=== PATIENT | male | born 1975 | race Two or more races ===

== ENCOUNTER 2018-04-02 13:03 | Emergency (ER) | payer OTHER ==
[~2018-04-02] VITALS: Ht 175.3 cm; Wt 98.0 kg
[2018-04-02 13:28] VITALS: BP 129/86
[2018-04-02] MEDS ORDERED: Isovue-300 100ml vial INJ PRN (13:30)
[2018-04-02] MEDS ORDERED: Isovue-370 150ml vial INJ PRN (13:30)
[2018-04-02] MEDS ORDERED: Ketorolac 30mg Inj IV ONE (13:30)
[2018-04-02] MEDS ORDERED: Morphine Sulfate 4mg/ml Inj IVP ONE (13:30)
--- NOTE | 2018-04-02 13:35 | Emergency Room Report ---
History of Present Illness General Chief Complaint: Multiple Trauma/Fall Source: Patient (LukeaartinimoJames BARRIGA) Present Illness HPI Patient presents with complaints of pain to the right lateral chest abdominal area on the right forearm Reports that he had a fall off of a ladder about 1 story high to the right side 2 days ago Reports of the paramedics were called However at that time he did not have much pain And the discomfort has slowly worsened He feels that there is some pleuritic component to this Also pain to the mid back Denies any lapse of consciousness Denies any head injury Denies any focal weakness also has pain to the right forearm (James Claros DO) Allergies: Coded Allergies: No Known Allergies (Unverified , 04/02/18) Patient History Past Medical History: see triage record Pertinent Family History: none Reviewed Nursing Documentation: PMH: Agreed; PSxH: Agreed (James Claros DO) Nursing Documentation-PMH Past Medical History: No Stated History (James Claros DO) Review of Systems All Other Systems: negative except mentioned in HPI (James Claros DO) Physical Exam Vital Signs Date Time Temp Pulse Resp B/P (MAP) Pulse Ox O2 Delivery O2 Flow Rate FiO2 04/02/18 13:06 98.6 82 18 129/86 96 Room Air 98.6 Sp02 EP Interpretation: reviewed, normal General Appearance: mild distress - In acute pain Head: normocephalic, atraumatic Eyes: bilateral eye PERRL, bilateral eye EOMI ENT: hearing grossly normal, normal pharynx, uvula midline Neck: full range of motion, supple, no meningismus, no bony tend - Uncomfortable paracervical area C3-4-5 Respiratory: lungs clear, no respiratory distress, no retraction Cardiovascular #1: regular rate, rhythm, other - Tender on palpation of the right mid axillary region nipple area down to the mid abdominal region Gastrointestinal: tenderness - Right upper quadrant and right flank region Genitourinary: no CVA tenderness Musculoskeletal: swelling - Right forear, however able to flex and Extend at the elbow and wrist Neurologic: alert, oriented x3, responsive Skin: other - Abrasions and hematoma to the right , no other associated hematoma seen Lymphatic: no adenopathy (James Claros DO) Medical Decision Making Diagnostic Impression: Primary Impression: Fall Additional Impressions: Fracture of transverse process of vertebra Closed rib fracture Hemothorax on right ER Course Given the patient's traumatic fall Given the location of pain and description of pain Multiple differentials are considered secondary to trauma Patient has imaging initiated Pain medication (James Claros DO) ER Course The patient presented for fall. The patient was endorsed to me by Dr. lCaros see his note for full history of present illness. CT ABDOMEN & PELVIS With Contrast: Right L3 and L4 transverse process fractures. Mild stranding along the right inferior psoas muscle. Right posterior back subcutaneous soft tissue contusions. Solid organs are intact. Tiny right pleural effusion. Incidental: Tiny low-density lesion in the liver. Normal appendix. Small bilateral fat-containing inguinal hernias. CTA CHEST With Contrast: Right rib 7 nondisplaced fracture. Tiny right pleural effusion. Mild bibasilar lung atelectasis. No pneumothorax. Cardiovascular structures intact. No PE. No aortic aneurysm or dissection. CT C SPINE: No fracture or malalignment. Mild mucosal thickening of the paranasal sinus. CT L SPINE: Right L3 and L4 transverse process fractures. Vertebral bodies are intact. No malalignment. Mild degenerative L4-5 and L5-S1 disc space narrowing. Mild lower back and right lateral subcutaneous soft tissue contusion. Patient was noted to have fall several days ago. Hemothorax appears to be small. Patient was prescribed pain medications. He appears to be stable for discharge home. Patient was advised to return for increased dizziness, fever, or other concerns. The patient is advised to follow up with primary care doctor in 1-2 days. Patient is advised to return if any worsening condition or if any changes in status that are concerning. This report is dictated with [employer] teletype operator software which may occasionally lead to discrepancies related to use of this software. Labs Test 04/02/18 13:40 White Blood Count 6.9 K/UL (4.8-10.8) Red Blood Count 4.21 M/UL (4.70-6.10) Hemoglobin 13.4 G/DL (14.2-18.0) Hematocrit 39.2 % (42.0-52.0) Mean Corpuscular Volume 93 FL (80-99) Mean Corpuscular Hemoglobin 31.8 PG (27.0-31.0) Mean Corpuscular Hemoglobin Concent 34.1 G/DL (32.0-36.0) Red Cell Distribution Width 11.6 % (11.6-14.8) Platelet Count 221 K/UL (150-450) Mean Platelet Volume 7.9 FL (6.5-10.1) Neutrophils (%) (Auto) 59.0 % (45.0-75.0) Lymphocytes (%) (Auto) 28.9 % (20.0-45.0) Monocytes (%) (Auto) 8.6 % (1.0-10.0) Eosinophils (%) (Auto) 2.5 % (0.0-3.0) Basophils (%) (Auto) 0.9 % (0.0-2.0) Sodium Level 141 MMOL/L (136-145) Potassium Level 3.6 MMOL/L (3.5-5.1) Chloride Level 106 MMOL/L (98-107) Carbon Dioxide Level 26 MMOL/L (21-32) Anion Gap 9 mmol/L (5-15) Blood Urea Nitrogen 10 mg/dL (7-18) Creatinine 0.8 MG/DL (0.55-1.30) Estimat Glomerular Filtration Rate > 60 mL/min (>60) Glucose Level 113 MG/DL (74-106) Calcium Level 8.7 MG/DL (8.5-10.1) Total Bilirubin 0.5 MG/DL (0.2-1.0) Aspartate Amino Transf (AST/SGOT) 25 U/L (15-37) Alanine Aminotransferase (ALT/SGPT) 27 U/L (12-78) Alkaline Phosphatase 47 U/L (46-116) Total Protein 7.3 G/DL (6.4-8.2) Albumin 3.9 G/DL (3.4-5.0) Globulin 3.4 g/dL Albumin/Globulin Ratio 1.1 (1.0-2.7) Lipase 197 U/L (73-393) (Kendrick Gomez MD) Last Vital Signs Date Time Temp Pulse Resp B/P (MAP) Pulse Ox O2 Delivery O2 Flow Rate FiO2 04/02/18 13:28 98.6 82 18 129/86 96 Room Air 98.6 (James Claros DO) Status: improved (Kendrick Gomez MD) Disposition: HOME, SELF-CARE Condition: Stable Scripts Ibuprofen* (MOTRIN*) 600 Mg Tablet 600 MG ORAL Q8H PRN for For Pain, #30 TAB 0 Refills Prov: Kendrick Gomez MD 04/02/18 Hydrocodone Bit/Acetaminophen 5-325* (NORCO 5-325*) 1 Each Tablet 1 TAB ORAL Q6H PRN for For Pain, #20 TAB 0 Refills Prov: Kendrick Gomez MD 04/02/18 James Claros DO Apr 02, 2018 13:35 Kendrick Gomez MD Apr 02, 2018 17:43
[2018-04-02 14:12] LABS: BASOPHILS % (AUTO) 0.9 % (0.0-2.0); EOSINOPHILS % (AUTO) 2.5 % (0.0-3.0); HEMATOCRIT 39.2 % (42.0-52.0); HEMOGLOBIN 13.4 G/DL (14.2-18.0); LYMPHOCYTES % (AUTO) 28.9 % (20.0-45.0); MEAN CORPUSCULAR VOLUME 93 FL (80-99); MONOCYTES % (AUTO) 8.6 % (1.0-10.0); PLATELET COUNT 221 K/UL (150-450); RED BLOOD COUNT 4.21 M/UL (4.70-6.10); RED CELL DISTRIBUTION WIDTH 11.6 % (11.6-14.8); WHITE BLOOD COUNT 6.9 K/UL (4.8-10.8)
[2018-04-02 14:25] LABS: ANION GAP 9 mmol/L (5-15); BLOOD UREA NITROGEN 10 mg/dL (7-18); CALCIUM 8.7 MG/DL (8.5-10.1); CARBON DIOXIDE 26 MMOL/L (21-32); CHLORIDE 106 MMOL/L (98-107); CREATININE 0.8 MG/DL (0.55-1.30); POTASSIUM 3.6 MMOL/L (3.5-5.1); SODIUM 141 MMOL/L (136-145)
[2018-04-02 14:28] LABS: ALANINE AMINOTRANSFERASE 27 U/L (12-78); ALBUMIN 3.9 G/DL (3.4-5.0); ALBUMIN/GLOBULIN RATIO 1.1 (1.0-2.7); ALKALINE PHOSPHATASE 47 U/L (46-116); ASPARTATE AMINO TRANSFERASE 25 U/L (15-37); BILIRUBIN,TOTAL 0.5 MG/DL (0.2-1.0)
[2018-04-02 16:06] VITALS: BP 126/82
[2018-04-02 17:12] VITALS: BP 126/77
[2018-04-02] MEDS ORDERED: NORCO 5-325 TA1 EACH ORAL (17:42)
[2018-04-02] MEDS ORDERED: IBUPROFEN600 MG ORAL (17:42)
[2018-04-02 18:02] VITALS: BP 117/88
[2018-04-02 18:03] VITALS: BP 117/88
--- NOTE | 2018-04-03 10:17 | Diagnostic Imaging Report ---
Indication: Chest trauma Technique: CT pulmonary angiogram performed utilizing automated exposure control with intravenous contrast. Axial, sagittal and coronal reconstructions were obtained. 3-D volumetric reconstructions were also performed. CT dose: Total DLP 1969.21 mGycm; CTDI vol 24.9,18.6 mGy Comparison: None Findings: There is no evidence of pulmonary embolism. Main pulmonary artery is normal in caliber. Thoracic aorta is normal in caliber, without evidence of dissection or aneurysm. There is a common origin of the brachiocephalic and left common carotid arteries. Visualized portions of the great vessels are patent and normal in caliber. Visualized central venous structures are patent. Heart size within normal limits. No pericardial effusion. No pathologically enlarged hilar or mediastinal lymphadenopathy. Thyroid is unremarkable. There is a nondisplaced fracture of the right posterior lateral seventh rib. There is no pneumothorax. There is trace right pleural fluid and dependent bibasilar atelectasis. IMPRESSION: Displaced right seventh posterior rib fracture. Trace right pleural fluid. No evidence of pneumothorax. Bibasilar atelectasis. No focal airspace consolidation. No evidence of pulmonary embolism. No thoracic aortic aneurysm or dissection. This corresponds with the statrad preliminary report. The CT scanner at [facility] is accredited by the [employer] and the scans are performed using protocols designed to limit radiation exposure to as low as reasonably achievable to attain images of sufficient resolution adequate for diagnostic evaluation.
--- NOTE | 2018-04-03 10:32 | Diagnostic Imaging Report ---
Indication: Trauma Technique: CT of the abdomen and pelvis utilizing automated exposure control with intravenous contrast. Venous scanning performed. Axial, sagittal and coronal reformats presented. CT dose: Total DLP 1969.21 mGycm; CTDI vol 24.9,18.6 mGy Comparison: None Findings: Acute, mildly displaced fractures of the right L3 and L4 transverse processes. There is adjacent stranding in the right inferior psoas muscle as well as the soft tissues of the right flank/right lower back. There is no well-defined/drainable fluid collection. Liver is normal in size and contour. Hepatic veins and portal veins appear patent. Gallbladder is normal in appearance. There is a well-circumscribed subcentimeter low-attenuation lesion in the anterior liver which is too small to fully characterize but likely a simple cyst. No evidence of hepatic laceration. Spleen, adrenal glands and pancreas grossly unremarkable. Imaged enhance symmetrically. No urinary tract stone or hydronephrosis bilaterally. No evidence of renal laceration. Bladder and prostate unremarkable. There are small fat-containing inguinal hernias. There is no evidence of bowel obstruction. No free intraperitoneal air or fluid. No inflammatory change in the mesentery. Abdominal aorta normal in caliber. No pathologically enlarged adenopathy. IMPRESSION: * Right L3 and L4 transverse process fractures. Mild stranding along the right inferior psoas muscle and stranding in the right posterior back subcutaneous soft tissues. No well-defined/drainable fluid collection. * No definite evidence of solid organ injury. * Trace right pleural effusion. This corresponds with the statrad preliminary report. The CT scanner at [facility] is accredited by the [employer] and the scans are performed using protocols designed to limit radiation exposure to as low as reasonably achievable to attain images of sufficient resolution adequate for diagnostic evaluation.
--- NOTE | 2018-04-03 10:40 | Diagnostic Imaging Report ---
Indication: Trauma Technique: CT cervical spine was performed utilizing automated exposure control without intravenous contrast material. Axial, sagittal and coronal images were generated. CT dose: Total DLP 2918.98 mGycm; CTDI vol 16.94,40.75,38.43 mGy Comparison: None Findings: No abnormal cervical curvature. Cervical lordosis is maintained. There is no evidence to suggest spondylolisthesis. No acute fracture identified. Anterior and lateral atlantodental intervals within normal limits. Very mild degenerative change of the cervical spine with small disc osteophyte complex at C4-C5. Vertebral body heights are preserved. No significant bony central canal stenosis or bony foraminal narrowing. Please note that the discs, spinal cord and nerves are better evaluated on MRI, which can be obtained for further evaluation as clinically indicated. No prevertebral fluid collection identified. Thyroid is unremarkable. Imaged lung apices are clear. Visualized mastoid air cells are clear. There is mucosal thickening with retention cyst or polyp in the right maxillary sinus. IMPRESSION: No evidence of acute fracture or traumatic malalignment. Mild degenerative change of the cervical spine. Paranasal sinus disease. This corresponds with the statrad preliminary report. The CT scanner at [facility] is accredited by the [employer] and the scans are performed using protocols designed to limit radiation exposure to as low as reasonably achievable to attain images of sufficient resolution adequate for diagnostic evaluation.
--- NOTE | 2018-04-03 10:45 | Diagnostic Imaging Report ---
Indication: Trauma Technique: CT thoracic spine was performed utilizing automated exposure control without intravenous contrast material. Axial, sagittal and coronal images were generated. CT dose: Total DLP 2918.98 mGycm; CTDI vol 16.94,40.75,38.43 mGy Comparison: None Findings: Very subtle lucencies at the costovertebral junctions of the posterior eighth and ninth ribs possibly related to subtle nondisplaced fractures. No thoracic vertebral body fractures identified. Thoracic kyphosis is maintained. No evidence suggest spondylolisthesis. Vertebral body heights and disc spaces are maintained. There is mild degenerative change with some anterior osteophytes. No evidence of significant bony central canal stenosis. Please note that the spinal cord and discs are better evaluated on MRI, which can be obtained for further evaluation as clinically indicated. Please see dedicated reports of concurrent CT of the chest and abdomen. IMPRESSION: Subtle lucencies within the posterior right eighth and ninth ribs at the costovertebral junctions possibly related to subtle nondisplaced fractures. No thoracic vertebral body fracture. No malalignment. This corresponds with the statrad preliminary report. The CT scanner at [facility] is accredited by the [employer] and the scans are performed using protocols designed to limit radiation exposure to as low as reasonably achievable to attain images of sufficient resolution adequate for diagnostic evaluation.
--- NOTE | 2018-04-03 10:49 | Diagnostic Imaging Report ---
Indication: Trauma Technique: CT lumbar spine was performed utilizing automated exposure control without intravenous contrast material. Axial, sagittal and coronal images were generated. CT dose: Total DLP 2918.98 mGycm; CTDI vol 16.94,40.75,38.43 mGy Comparison: None Findings: Acute right L3 and L4 transverse process fractures. Lumbar lordosis is maintained. No evidence suggest spondylolisthesis. Vertebral body heights are maintained. There is mild degenerative at L4-5 and L5-S1. No evidence of significant bony central canal stenosis or significant bony foraminal narrowing. Please note that the spinal cord and discs are better evaluated on MRI, which can be obtained for further evaluation as clinically indicated. There is mild lower back and right lateral subcutaneous soft tissue stranding/contusion without well-defined/drainable fluid collection. Please see dedicated reports of concurrent CT of the abdomen. IMPRESSION: Right L3 and L4 transverse process fractures. No vertebral body fracture or malalignment. Mild degenerative change. Mild lower back and right lateral subcutaneous soft tissue stranding/contusion. No well-defined/drainable fluid collection. This corresponds with the statrad preliminary report. The CT scanner at [facility] is accredited by the [employer] and the scans are performed using protocols designed to limit radiation exposure to as low as reasonably achievable to attain images of sufficient resolution adequate for diagnostic evaluation.
--- NOTE | 2018-04-03 12:27 | Diagnostic Imaging Report ---
Indication: Trauma Technique: XRAY Forearm 2v R Comparison: None Findings: No acute fractures identified. The partially visualized elbow and wrist articulations are preserved. No focal soft tissue abnormality is appreciated. No radiopaque foreign body seen. Impression: No evidence of acute fracture or dislocation.
== END 2018-04-02 18:08 | disposition home or self-care (01) ==
LOC: EMR 15:08
DX: S22.31XA Fracture of one rib, right side, initial encounter for closed fracture (principal); S32.039A Unspecified fracture of third lumbar vertebra, initial encounter for closed fracture; S32.049A Unspecified fracture of fourth lumbar vertebra, initial encounter for closed fracture; W11.XXXA Fall on and from ladder, initial encounter; Y92.009 Unspecified place in unspecified non-institutional (private) residence as the place of occurrence of the external cause; J94.2 Hemothorax
CPT/HCPCS: 36415; 71275; 72125; 72128; 72131; 73090; 74177; 80053; 83690; 85025; 96361; 96374; 96375; 99284; J1885; J2270; J2405; Q9967; 96360

== ENCOUNTER 2018-09-05 20:15 | Emergency (ER) | payer OTHER ==
[~2018-09-05] VITALS: Ht 175.3 cm; Wt 106.6 kg
[~2018-09-05 20:15] MED LIST: IBUPROFEN600 MG ORAL; NORCO 5-325 TA1 EACH ORAL
[2018-09-05] MEDS ORDERED: RISPERIDONE3 MG ORAL (20:54)
[2018-09-05 21:26] LABS: APPEARANCE,URINE CLEAR; BILIRUBIN, URINE NEGATIVE (NEGATIVE); COLOR,URINE PALE YELLOW; GLUCOSE, URINE (UA) NEGATIVE (NEGATIVE); KETONES,URINE NEGATIVE (NEGATIVE); LEUKOCYTE ESTERASE ,URINE NEGATIVE (NEGATIVE); NITRITE,URINE NEGATIVE (NEGATIVE); PH,URINE 5 (4.5-8.0); PROTEIN,URINE 1+ (NEGATIVE); UROBILINOGEN,URINE NORMAL MG/DL (0.0-1.0)
[2018-09-05] MEDS ORDERED: Ketorolac 60mg Inj IM ONE (21:30)
[2018-09-05] MEDS ORDERED: CEPHALEXIN500 MG ORAL (22:34)
[2018-09-05] MEDS ORDERED: ROBAXIN500 MG PO (22:34)
[2018-09-05 22:36] VITALS: BP 159/94
--- NOTE | 2018-09-06 05:19 | Emergency Room Report ---
History of Present Illness General Chief Complaint: Back Pain-No Injury Source: Patient Present Illness HPI Patient 43-year-old male presented after increased low back pain. Patient gradual onset of symptoms. Patient reports having increased dysuria. He reports having prior episodes of low back pain. He denied any radiation of symptoms. He reports no fever. Had been vomiting. He denies any leg weakness or numbness. The pain is worse with movement. He denies recent trauma Allergies: Coded Allergies: No Known Allergies (Unverified , 04/02/18) Patient History Past Medical History: see triage record Reviewed Nursing Documentation: PMH: Agreed; PSxH: Agreed Nursing Documentation-PMH Past Medical History: No Stated History Review of Systems All Other Systems: negative except mentioned in HPI Physical Exam Vital Signs Date Time Temp Pulse Resp B/P (MAP) Pulse Ox O2 Delivery O2 Flow Rate FiO2 09/05/18 20:49 97.9 66 16 159/94 99 Room Air General Appearance: well appearing, no apparent distress, alert, GCS 15, non- toxic, obese Head: normocephalic, atraumatic ENT: hearing grossly normal, normal voice Neck: full range of motion, supple Respiratory: no respiratory distress, speaking full sentences Cardiovascular #1: normal inspection Gastrointestinal: normal inspection, normal bowel sounds, non tender, soft Musculoskeletal: decreased range of mation Neurologic: normal inspection, alert, oriented x3, responsive, normal gait Psychiatric: mood/affect normal Skin: normal inspection, no rash Medical Decision Making Diagnostic Impression: Primary Impression: Urinary tract infection ER Course Patient presented for back pain. Differential diagnosis included but was not limited to herniated disc, cauda equina syndrome, abdominal aortic aneurysm, perforated ulcer, spinal epidural abscess, spinal stenosis, lumbar fracture, metastatic lesion, pyelonephritis. The patient appears to have evidence of urinary infection. Patient given prescription for oral antibiotics.The patient is advised to follow up with primary care doctor in 1-2 days. Patient is advised to return if any worsening condition or if any changes in status that are concerning. This report is dictated with [employer] html web developer software which may occasionally lead to discrepancies related to use of this software. Labs Test 09/05/18 21:18 Urine Color Pale yellow Urine Appearance Clear Urine pH 5 (4.5-8.0) Urine Specific [place] 1.015 (1.005-1.035) Urine Protein 1+ (NEGATIVE) Urine Glucose (UA) Negative (NEGATIVE) Urine Ketones Negative (NEGATIVE) Urine Blood 3+ (NEGATIVE) Urine Nitrite Negative (NEGATIVE) Urine Bilirubin Negative (NEGATIVE) Urine Urobilinogen Normal MG/DL (0.0-1.0) Urine Leukocyte Esterase Negative (NEGATIVE) Urine RBC 0-2 /HPF (0 - 0) Urine WBC 2-4 /HPF (0 - 0) Urine Squamous Epithelial Cells None /LPF (NONE/OCC) Urine Bacteria Occasional /HPF (NONE) Last Vital Signs Date Time Temp Pulse Resp B/P (MAP) Pulse Ox O2 Delivery O2 Flow Rate FiO2 09/05/18 20:49 97.9 66 16 159/94 99 Room Air Status: improved Disposition: HOME, SELF-CARE Condition: Stable Scripts Methocarbamol* (ROBAXIN*) 500 Mg Tablet 500 MG PO TID, #21 TAB 0 Refills Prov: Kendrick Gomez MD 09/05/18 Cephalexin* (KEFLEX*) 500 Mg Capsule 500 MG ORAL EVERY 6 HOURS, #40 CAP Prov: Kendrick Gomez MD 09/05/18 Referrals: [facility],REFERRING (PCP) Patient Instructions: Back Pain, Adult Kendrick Gomez MD Sep 06, 2018 05:19
== END 2018-09-05 22:36 | disposition home or self-care (01) ==
LOC: EMR 21:04
DX: N39.0 Urinary tract infection, site not specified (principal); M54.5 Low back pain
CPT/HCPCS: 81003; 96372; 99283